=== PATIENT | female | born 1975 | race American Indian/Alaskan Native ===

== ENCOUNTER 2017-08-24 06:03 | Emergency (ER) | payer SELFPAY ==
[2017-08-24 06:35] VITALS: BP 118/84
[2017-08-24 07:12] LABS: Hematocrit 40.2 % (30.3-42.9); Hemoglobin 13.4 gm/dl (10.1-14.3); Mean Corpuscular HGB Conc 33 % (30-34); Mean Corpuscular Hemoglobin 29 pg (28-32); Mean Corpuscular Volume 88 fl (79-97); Platelet Count 234 K/mm3 (140-440); Red Blood Count 4.59 M/mm3 (3.65-5.03)
[2017-08-24 07:21] LABS: Red Cell Distribution Width 25.4 % (13.2-15.2)
[2017-08-24 07:27] LABS: INR 0.93 (0.87-1.13)
[2017-08-24 07:28] LABS: BUN/Creatinine Ratio 18; Blood Urea Nitrogen 9 mg/dL (7-17); Calcium 7.8 mg/dL (8.4-10.2); Hemolysis Index 51; Partial Thromboplastin Time 25.2 Sec. (24.2-36.6)
[2017-08-24 08:35] LABS: Basophils % (Manual) 0 % (0.0-1.8); Eosinophils % (Manual) 0 % (0.0-4.3); Total Cells Counted 100
[2017-08-24 08:36] LABS: Anisocytosis 1+; Ovalocytes 1+; Stomatocytes Few
== END 2017-08-24 07:00 | disposition left against medical advice (07) ==
LOC: ED 06:03
DX: R07.89 Other chest pain (principal); Z53.21 Procedure and treatment not carried out due to patient leaving prior to being seen by health care provider
CPT/HCPCS: 36415; 80048; 84484; 84703; 85007; 85025; 85610; 85730; 93005; 93010